=== PATIENT | male | born 1940 | race Caucasian/White ===

== ENCOUNTER 2017-01-31 05:15 | Emergency (ER) | payer MEDICARE, BC ==
[~2017-01-31] VITALS: Ht 172.7 cm; Wt 64.0 kg
[2017-01-31 05:28] VITALS: Ht 172.7 cm; Wt 64.0 kg
[2017-01-31] MEDS ORDERED: IBUPROFEN 800 MG TAB PO ONE (06:00)
[2017-01-31] MEDS ORDERED: CARB15DR48 BOTH EARS (06:50)
[2017-01-31] MEDS ORDERED: NPH10OT BOTH EARS (06:50)
--- NOTE | 2017-01-31 07:29 | ERD ---
ER Documentation Chief Complaint Date/Time DATE: 01/31/17 TIME: 07:28 Chief Complaint left ear pain r/t swimming,got water in left ear HPI Patient is a 76-year-old male with no medical problems who presents with pain in the left ear. The patient is visiting from [place] and was swimming in a hotel pool yesterday. He is here on vacation. He started with pain yesterday and tried using Q-tips to clean out his left ear. He has had decreased hearing in the left ear. He thinks that it might be full of wax as well. His primary doctor is in [place]. He has no other complaints. ROS All systems reviewed and are negative except as per history of present illness. Medications Home Meds Active Scripts Neomycin/Polymyxin/Hydrocort* (Cortisporin* Otic) 10 Ml Susp, 4 DROP BOTH EARS QID, #1 EA Prov:BARBARA HELTON MD 01/31/17 Carbamide Peroxide* (Debrox*) 6.5% - 15 Ml Drops, 10 DROP BOTH EARS BID, #1 BOTTLE Prov:BARBARA HELTON MD 01/31/17 Allergies Allergies: Coded Allergies: No Known Allergy (Unverified , 01/31/17) PMhx/Soc Medical and Surgical Hx: pt denies Medical Hx History of Surgery: Yes (shoulder, knee) Anesthesia Reaction: No Hx Alcohol Use: No Hx Substance Use: No Hx Tobacco Use: No Smoking Status: Unknown if ever smoked FmHx Family History: No diabetes Physical Exam Vitals Vital Signs Date Time Temp Pulse Resp B/P Pulse Ox O2 Delivery O2 Flow Rate FiO2 01/31/17 05:28 97.2 65 18 163/70 98 Physical Exam Const: No acute distress Head: Atraumatic Eyes: Normal Conjunctiva ENT: Significant cerumen impaction bilaterally Neck: Full range of motion..~ No meningismus. Resp: Clear to auscultation bilaterally Cardio: Regular rate and rhythm, no murmurs Abd: Soft, non tender, non distended. Normal bowel sounds Skin: No petechiae or rashes Back: No midline or flank tenderness Ext: No cyanosis, or edema Neur: Awake and alert Psych: Normal Mood and Affect Results 24 hrs Current Medications Medications (Trade) Dose Ordered Sig/Yeyo Route PRN Reason Start Time Stop Time Status Last Admin Dose Admin Ibuprofen (Motrin) 800 mg ONCE ONCE PO 01/31/17 06:00 01/31/17 06:01 DC 01/31/17 06:07 Procedures/MDM Patient is a 76-year-old male presents with bilateral cerumen impaction. The patient likely has swimmer's ear in the left ear as well. The patient had ear irrigation done bilaterally and feels much better. His hearing has improved. His pain is decreased. The patient was given a prescription for Cortisporin otic and Debrox solution. The patient can return for any worsening symptoms. I believe outpatient management is appropriate. I do not believe the patient requires oral antibiotics at this time. Departure Diagnosis: Primary Impression: Swimmers' ear Laterality: left Chronicity: acute Qualified Code: H60.332 - Acute swimmer 's ear of left side Additional Impressions: Cerumen impaction Laterality: bilateral Qualified Code: H61.23 - Bilateral impacted cerumen Left ear pain Condition: Fair Patient Instructions: Ear Wax, Treated Referrals: Your doctor Additional Instructions: Call your primary care doctor TOMORROW for an appointment during the next 1 WEEK.Tell the guidance secretary that you were referred from this facility.See the doctor sooner or return here if your condition worsens before your appointment time. BARBARA HELTON MD Jan 31, 2017 07:29
== END 2017-01-31 07:15 | disposition home or self-care (01) ==
LOC: FTE 05:15
DX: H60.332 Swimmer's ear, left ear (principal); H61.23 Impacted cerumen, bilateral